=== PATIENT | male | born 1970 ===

== ENCOUNTER 2017-12-20 11:23 | Emergency (ER) | payer SELFPAY ==
[2017-12-20 11:55] VITALS: BP 130/86; PULSE 98; RESP 14; TEMP 99.5; O2SAT 98
[2017-12-20] MEDS ORDERED: Sodium Chloride 0.9% 1,000 ML IV ONE (12:32)
--- NOTE | 2017-12-20 13:19 | C.PDOC ---
History Of Present Illness 47 year old male presents to ED with complaints of painful mass to back of neck for 1 week. Patient states he thinks it was a pimple but the area has been growing in size and become increasingly painful. Denies any fever or drainage. Patient is diabetic but does not medications, states he controls sugar with diet and cinnamon. Time Seen by Provider: 12/20/17 12:23 Chief Complaint (Nursing): Abnormal Skin Integrity History Per: Patient History/Exam Limitations: no limitations Onset/Duration Of Symptoms: Days Current Symptoms Are (Timing): Still Present Location Of Injury: Posterior: Wrist (mass) Quality Of Symptoms: Painful, Swollen Past Medical History Reviewed: Historical Data, Nursing Documentation, Vital Signs Vital Signs: Last Vital Signs Temp 99.5 F 12/20/17 11:47 Pulse 98 H 12/20/17 11:47 Resp 14 12/20/17 11:47 BP 130/86 12/20/17 11:47 Pulse Ox 98 12/20/17 13:19 - Medical History PMH: Diabetes (not taking medication) Surgical History: No Surg Hx Family History: States: Unknown Family Hx - Social History Hx Tobacco Use: No Hx Alcohol Use: Yes Hx Substance Use: No Review Of Systems Except As Marked, All Systems Reviewed And Found Negative. Skin: Positive for: Other (painful mass to neck) Physical Exam - Physical Exam Appears: Non-toxic, No Acute Distress Skin: Warm, Dry, Other (tender erythematous indurated large mass 7x6cm to posterior base of neck, no fluctuance or drainage) Head: Atraumatic, Normacephalic Eye(s): bilateral: Normal Inspection, EOMI Nose: Normal Oral Mucosa: Moist Neck: Normal ROM Chest: Symmetrical Cardiovascular: Rhythm Regular, No Murmur Respiratory: Normal Breath Sounds, No Wheezing Gastrointestinal/Abdominal: Other (obese) Extremity: Bilateral: Atraumatic, Normal Color And Temperature, Normal ROM Neurological/Psych: Oriented x3, Normal Speech Gait: Steady ED Course And Treatment O2 Sat by Pulse Oximetry: 98 Medical Decision Making Medical Decision Making: Patient with large tender mass to posterior neck, likely abscess. Patient is diabetic and hyperglycemic, not on any medications. Case discussed with Dr Smith who recommends labs and CT scan. Place order for labs and CT [id number] RN informs me the patient has not returned and unable to find him. It appears patient eloped Disposition Counseled Patient/Family Regarding: Diagnosis, Need For Followup - Disposition Disposition: ELOPEMENT - ER ONLY Disposition Time: 13:35 Condition: STABLE - POA Present On Arrival: None - Clinical Impression Clinical Impression: Abscess of neck
== END 2017-12-20 12:30 | disposition left against medical advice (07) ==
LOC: C.ER 11:23
DX: L02.11 Cutaneous abscess of neck (principal)